=== PATIENT | male | born 1975 | race Caucasian/White ===

== ENCOUNTER 2023-07-09 12:11 | Emergency (ER) | payer SELFPAY ==
[2023-07-09 12:46] VITALS: BMI 22.8
[2023-07-09 12:50] VITALS: BP 125/86; PULSE 98; RESP 20; TEMP 37.1; O2SAT 99; BMI 23.6
[2023-07-09 13:09] VITALS: BP 125/86; PULSE 98; RESP 20; TEMP 37.1; O2SAT 99
--- NOTE | 2023-07-09 13:34 | EXP.UTC ---
Discharge Plan Disposition Patient Disposition: Home, Self-Care Condition: Good Prescriptions Prescriptions: New amoxicillin-pot clavulanate 875-125 mg Tablet 1 tab PO Q12H Qty: 20 0RF Referrals Follow up/Referrals: Provider,Referral, MD [Primary Care Provider] - See instructions Activity Restrictions/Add. Instructions Additional Instructions/Restrictions: Clean area well with antibacterial soap and water Watch for worsening signs of infection and follow up immediately if seen Return if needed Straight to ER if you see any streaks having fever, chills or swelling and redness moving up arm Clinical Impressions Clinical Impression: Puncture wound Instructions Patient Instructions: DI for Puncture Wound Discharge ED Provider: Aletha Childers [facility] [place] HPI General Stated complaint: AO8@work, pain in Rt hand Mode of Arrival: Ambulatory Source of Information: Patient Limitations: No Limitations Time Seen by Provider: 07/09/23 13:34 Description of Symptoms (Recalled from Triage Doc. by RN): PATIENT C/O PAIN AND SWELLING TO RIGHT HAND AFTER HITTING IT ON A NAIL 3 DAYS AGO HEENT Symptoms (Recalled from RN notes): No Resp Symptoms (Recalled from RN notes): No Skin Symptoms (Recalled from RN notes): No MS Symptoms (Recalled from RN notes): Yes Functional Status (Recalled from RN notes): WNL History of Present Illness Provider Complaint: Patient states that he was working under a house a few days ago and he hit his hand on a nail that was sticking down from a floor joist States that he continued working thinking it would be ok but today it looked swollen like it may be getting infected so he came in to get a tetanus shot and antibiotics Related Data Previous Rx's Medication Instructions Recorded amoxicillin 875 mg-potassium 1 tab PO Q12H #20 tabs 07/09/23 clavulanate 125 mg tablet Allergies Allergy/AdvReac Type Severity Reaction Status Date / Time No Known Allergies Allergy Verified 07/09/23 12:45 Worker's Comp Is this a Worker's Comp case?: No [facility] Disclaimer: The information contained in this section may have been updated after the patient was seen, as this information can be updated by other users. Medical History (Updated 07/09/23 @ 13:41 by Aletha Childers APRN) Anxiety Hypertension Social History Smoking Status: Unknown if ever smoked alcohol intake: never current occupational status: employed Travel in the last 8 weeks: None ROS Obtained: Yes All systems reviewed & no additional complaints except as documented and Yes Systems reviewed as appropriate & no additional complaints except as documented Constitutional Constitutional: Reports system reviewed and no additional complaints, except as documented and Reports as per HPI ENT Ears, Nose, Mouth, and Throat: Reports system reviewed and no additional complaints, except as documented and Reports as per HPI Cardiovascular Cardiovascular: Reports system reviewed and no additional complaints, except as documented and Reports as per HPI Respiratory Respiratory: Reports system reviewed and no additional complaints, except as documented and Reports as per HPI Gastrointestinal Gastrointestingal: Reports system reviewed and no additional complaints, except as documented and as per HPI Integumentary/Breasts Skin/Breast: Reports system reviewed and no additional complaints, except as documented and Reports as per HPI Comments: Puncture wound on right hand from dirty nail Physical Exam General General appearance: alert and in no apparent distress Respiratory Respiratory exam: Present normal lung sounds bilaterally; Absent respiratory distress or wheezes Cardiovascular Cardiovascular exam: Present regular rate, normal rhythm and normal heart sounds Expanded Upper Extremity Exam Right: Hand exam: Present tenderness and swelling (mild with redness around small puncture wound) Neurological Exam Neurological exam: Present michael
== END 2023-07-09 13:40 | disposition home or self-care (01) ==
PROVIDERS: Emergency Provider Nurse Practitioner
DX: S61.431A Puncture wound without foreign body of right hand, initial encounter (principal); Z23 Encounter for immunization; I10 Essential (primary) hypertension; F41.9 Anxiety disorder, unspecified; W45.0XXA Nail entering through skin, initial encounter
CPT/HCPCS: 90715; 99204; 99212; G0463

== ENCOUNTER 2023-10-15 21:27 | Emergency (ER) | payer SELFPAY ==
--- NOTE | 2023-10-15 21:40 | PC.NURSE ---
Patient not in room upon entering to triage. [employer] had pointed patient to restroom upon rooming patient.
[2023-10-15 21:47] VITALS: BP 139/105; PULSE 95; RESP 18; TEMP 36.7; O2SAT 99; BMI 24.7
--- NOTE | 2023-10-15 21:55 | HMH.EDGENADL ---
Discharge Plan Disposition Patient Disposition: Home, Self-Care Prescriptions Prescriptions: New sulfamethoxazole-trimethoprim [Bactrim DS] 800-160 mg tablet 1 tab PO DAILY 7 Days Qty: 7 0RF ondansetron 4 mg tablet,disintegrating 4 mg PO Q8H PRN (Reason: nausea and vomiting) 4 Days Qty: 12 0RF No Action amoxicillin-pot clavulanate 875-125 mg Tablet 1 tab PO Q12H Qty: 20 0RF Referrals Follow up/Referrals: Provider,Referral, MD [Primary Care Provider] - See instructions Activity Restrictions/Add. Instructions Additional Instructions/Restrictions: At this time it was felt you are safe to be discharged home. If new or worsening symptoms please do not hesitate to return the emergency department. If symptoms persist please follow-up with your family doctor as you are able. Please take your medications as prescribed. Clinical Impressions Clinical Impression: Infected open wound, Vomiting Instructions Patient Instructions: DI for Skin Abscess Discharge ED Provider: Lisandro Barnes General Adult HPI General Chief complaint: Skin/Abscess/Foreign Body Stated complaint: sores all over, diarrhea Time Seen by Provider: 10/15/23 21:34 Mode of Arrival: Ambulatory Source of Information: Patient Limitations: No Limitations Description of Symptoms (Recalled from ER Triage Doc. 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 Patient also reports that he had nausea an vomiting yesterday last episode of emesis @ 0200 with frequent diarrhea. Patient reports that he had a [employer] sandwich just [employer] although his appetite is decreased, also drinking a large soda at triage. History of Present Illness HPI narrative: Patient is a 48-year-old male with past medical history of previous MRSA source who presents emergency department for evaluation of a sore. He also has had nausea and vomiting over the last 48 hours, there is associated nonbloody diarrhea. Patient had transient abdominal pain yesterday however no abdominal pain currently, has tolerated p.o. this afternoon with persistent nausea. No other acute complaints at this time. Related Data Previous Rx's Medication Instructions Recorded amoxicillin 875 mg-potassium 1 tab PO Q12H #20 tabs 07/09/23 clavulanate 125 mg tablet ondansetron 4 mg disintegrating 4 mg PO Q8H PRN nausea and 10/15/23 tablet vomiting 4 days #12 tabs sulfamethoxazole 800 1 tab PO DAILY 7 days #7 tabs 10/15/23 mg-trimethoprim 160 mg tablet (Bactrim DS) Allergies Allergy/AdvReac Type Severity Reaction Status Date / Time No Known Allergies Allergy Verified 07/09/23 12:45 PFSH PFS Disclaimer: The information contained in this section may have been updated after the patient was seen, as this information can be updated by other users. Medical History (Updated 10/15/23 @ 21:55 by Lisandro Barnes MD) Anxiety Hypertension Social History (Updated 07/09/23 @ 13:41 by Aletha Childers APRN) Smoking Status: Current every day smoker alcohol intake: never current occupational status: employed Travel in the last 8 weeks: None ROS Obtained: Yes Systems reviewed as appropriate & no additional complaints except as documented Physical Exam General General appearance: alert and in no apparent distress Head Head exam: atraumatic, normocephalic and other (Open sores over the vertex that are excoriated, hemostatic. Subcentimeter open sore over his right medial eyebrow, no involvement of the lid or sclera.) Eye Eye exam: Present PERRL and EOMI ENT ENT exam: Present mucous membranes moist Neck Neck exam: Present normal inspection Chest Chest inspection: Present normal inspection and symmetric chest wall rise Respiratory Respiratory exam: Present normal lung sounds bilaterally; Absent respiratory distress Cardiovascular Cardiovascular exam: Present regular
[2023-10-15 22:20] VITALS: BP 140/93; PULSE 96; RESP 16; TEMP 36.8; O2SAT 98
== END 2023-10-15 22:21 | disposition home or self-care (01) ==
PROVIDERS: Emergency Provider Emergency Medicine
DX: S01.00XA Unspecified open wound of scalp, initial encounter (principal); L08.9 Local infection of the skin and subcutaneous tissue, unspecified; R11.2 Nausea with vomiting, unspecified; R19.7 Diarrhea, unspecified; F17.210 Nicotine dependence, cigarettes, uncomplicated; I10 Essential (primary) hypertension; X58.XXXA Exposure to other specified factors, initial encounter
CPT/HCPCS: 99283

== ENCOUNTER 2025-01-25 17:03 | Emergency (ER) | payer MEDICAID, SELFPAY ==
[2025-01-25 17:15] VITALS: BP 134/72; PULSE 90; RESP 18; TEMP 36.7; O2SAT 98; BMI 27.3
[2025-01-25 17:21] LABS: Coronavirus 19, PCR Not Detected (NotDetected); Influenza A, PCR Not Detected (NotDetected); Influenza B, PCR Not Detected (NotDetected)
[2025-01-25 18:14] VITALS: BP 114/73; PULSE 85; O2SAT 98
--- NOTE | 2025-01-25 18:14 | XR_ITS ---
PROCEDURE INFORMATION: Exam: XR Chest Exam date and time: 01/25/2025 6:11 PM Age: 50 years old Clinical indication: Cough TECHNIQUE: Imaging protocol: Radiologic exam of the chest. Views: 2 views. COMPARISON: No relevant prior studies available. FINDINGS: Lungs: Unremarkable. No consolidation. Pleural spaces: Unremarkable. No pleural effusion. No pneumothorax. Heart/Mediastinum: Unremarkable. No cardiomegaly. Bones/joints: Unremarkable. IMPRESSION: No acute findings.
--- NOTE | 2025-01-25 18:14 | HMH.EDGENADL ---
Discharge Plan Disposition Patient Disposition: Home, Self-Care Prescriptions Prescriptions: New doxycycline hyclate 100 mg capsule 100 mg PO BID 7 Days Qty: 14 0RF joouxkdpdowijxy-pqquhbqpo-EX [Bromfed DM] 2-30-10 mg/5 mL syrup 5 ml PO Q6H PRN (Reason: cold symptoms) Qty: 118 0RF No Action amoxicillin-pot clavulanate 875-125 mg Tablet 1 tab PO Q12H Qty: 20 0RF sulfamethoxazole-trimethoprim [Bactrim DS] 800-160 mg tablet 1 tab PO DAILY 7 Days Qty: 7 0RF ondansetron 4 mg tablet,disintegrating 4 mg PO Q8H PRN (Reason: nausea and vomiting) 4 Days Qty: 12 0RF Referrals Follow up/Referrals: Gala Abel APRN [Primary Care Provider] - See instructions Activity Restrictions/Add. Instructions Additional Instructions/Restrictions: At this time it was felt you are safe to be discharged home. If new or worsening symptoms please do not hesitate to return the emergency department. Please take antibiotics as prescribed and follow-up with your family doctor early next week if things are not getting better. Clinical Impressions Clinical Impression: Acute interstitial pneumonia Print Language Print Language: Chinese Discharge ED Provider: Lisandro Barnes General Adult HPI General Chief complaint: Upper Respiratory Infection Stated complaint: sore throat, MAC, SOA Time Seen by Provider: 01/25/25 17:55 Mode of Arrival: Ambulatory Source of Information: Patient Description of Symptoms (Recalled from ER Triage Doc. by RN): Pt presents for evaluation of productive cough, bodyaches, chills since . History of Present Illness HPI narrative: Patient is a 50-year-old male with no pertinent past medical history presents emergency department for evaluation multiple complaints. Since patient has had diffuse bodyaches, productive cough, chills, sore throat, rhinorrhea. No chest pain reported no abdominal pain reported. Due to persistent symptoms he presents here for continued evaluation. No other acute complaints at this time Please note that above description of symptoms, in this electronic medical record under categorization of recalled from ER triage doctor by RN are reflective of an initial nursing assessment, however, is not reflective of my full history and physical exam that was personally taken and clarified. Consequentially, this preceding description of symptoms, which may include the patient's categorized chief complaint in the EMR, do not reflect my personal clinical impression, and the ultimate description of history of present illness and patient stated complaints should be deferred to this section of the note. Unless stated otherwise or congruent with this section of the note, additional signs, symptoms, or incongruence should be interpreted as inaccurate with my clinical impression. Related Data Previous Rx's ?Medication ?Instructions ?Recorded amoxicillin 875 mg-potassium 1 tab PO Q12H #20 tabs 07/09/23 clavulanate 125 mg tablet ondansetron 4 mg disintegrating 4 mg PO Q8H PRN nausea and 10/15/23 tablet vomiting 4 days #12 tabs sulfamethoxazole 800 1 tab PO DAILY 7 days #7 tabs 10/15/23 mg-trimethoprim 160 mg tablet (Bactrim DS) mwfzzwawujmldyk-kwwieaokhdmxpbu-IH 5 ml PO Q6H PRN cold symptoms #118 01/25/25 2 mg-30 mg-10 mg/5 mL oral syrup mL (Bromfed DM) doxycycline hyclate 100 mg capsule 100 mg PO BID pneumonia 7 days #14 01/25/25 caps Allergies Allergy/AdvReac Type Severity Reaction Status Date / Time No Known Allergies Allergy Verified 01/25/25 18:31 [facility] Disclaimer: The information contained in this section may have been updated after the patient was seen, as this information can be updated by other users. Medical History (Updated 01/25/25 @ 19:22 by Lisandro Barnes MD) Anxiety Hypertension Social History (Updated 07/09/23 @ 13:41 by Aletha Childers APRN) Smoking Status: Current every day smoker alcohol intake: never current occupational status: employed Travel in the last 8 weeks: None Have you lived/traveled outside US in past 30 days?: No Contact w/someone who lives/traveled outside US past 30 days?: No Exposure to someone with infectious disease in past 14 days?: No Do you have a fever (greater than 100.4 F or 38 C)?: No Have you tested positive for COVID-19: No Exposed to someone with COVID-19 in past 14 days?: No Do you have a sore throat?: Yes Do you have a cough?: Yes Do you have any weakness?: Yes Do you have any diarrhea?: No Are you experiencing any unusual bleeding?: No Do you have any muscle aches/pain?: No Do you have any abdominal pain?: No Are you experiencing loss of taste or smell?: No ROS Obtained: Yes Systems reviewed as appropriate & no additional complaints except as documented Physical Exam General General appearance: alert and in no apparent distress Head Head exam: atraumatic and normocephalic Eye Eye exam: Present PERRL and EOMI ENT ENT exam: Present mucous membranes moist; Absent normal oropharynx (Erythematous posterior oropharynx without overt exudate uvula midline, no swollen tonsils) Neck Neck exam: Present normal inspection Chest Chest inspection: Present normal inspection and symmetric chest wall rise Respiratory Respiratory exam: Present normal lung sounds bilaterally; Absent respiratory distress, wheezes or stridor Cardiovascular Cardiovascular exam: Present regular rate and normal rhythm Extremities Exam Extremities exam: Present normal inspection Neurological Exam Neurological exam: Present alert Psychiatric Psychiatric exam: Present normal affect Skin Skin exam: Present warm and dry Medical Decision Making Medical Records Screening: Per USPSTF and CDC recommendations, given the prevalence of disease in our region, it is our hospital?s policy to screen for HIV and viral Hepatitis for all patients aged 18 and over and those with ongoing risk factors. Jose Inquiry Pt receiving controlled substance: No Vital Signs: 01/25/25 17:15 01/25/25 18:14 01/25/25 18:49 Temperature 98.0 F Temperature Source Oral Pulse Rate 85 76 Pulse Rate [Right] 90 Respiratory Rate 18 Blood Pressure 114/73 140/90 Blood Pressure [Right Arm] 134/72 Blood Pressure Mean [Right Arm] 92 Blood Pressure Source [Right Arm] Automatic Cuff Blood Pressure Position [Right Arm] Sitting 02 Sat by Pulse Oximetry 98 98 95 Oxygen Delivery Method Room Air Room Air Room Air Lab Data Lab Results 01/25/25 17:17: SARS-CoV-2 (PCR) Not detected, Influenza A Untype (PCR) Not detected, Influenza Type B (PCR) Not detected, Group A Strep Rapid Negative Orders (Tests/Meds): ED MEDICATIONS Discontinued Medications Generic Name Dose Route Start Last Admin Trade Name Gabrielq PRN Reason Stop Dose Admin Acetaminophen 1,000 mg 01/25/25 18:14 01/25/25 18:30 Acetaminophen 500mg Tab PO 01/25/25 18:15 1,000 mg ONCE ONE Administration Ibuprofen 600 mg 01/25/25 18:14 01/25/25 18:30 Ibuprofen 600 Mg Tablet PO 01/25/25 18:15 600 mg ONCE ONE Administration ORDERS Category Date Time Status CXR 2 view (NOT portable) [XR chest 2V] Stat Exams 01/25/25 18:14 Taken HIV Combo Stat Lab 01/25/25 17:48 Ordered Hepatitis C Ab Qual. W/ RFX Stat Lab 01/25/25 17:48 Ordered Rapid PCR Covid and Flu A/B Stat Lab 01/25/25 17:17 Completed Strep Scrn Group A (Rapid) Stat Lab 01/25/25 17:17 Completed Strep Screen Confirmation Stat Micro 01/25/25 17:17 Received Medical Decision Narrative: In summary patient is a 50-year-old male with past medical history described above who presents emergency department for evaluation of cough, rhinorrhea, sore throat, myalgias. Patient is hemodynamically stable nontoxic-appearing upon arrival, afebrile. Patient's history strongly consistent with viral syndrome given prevalence of influenza in our community swab will be obtained. Differential also includes pneumonia, strep pharyngitis, among others. Limited workup will be conducted with COVID and flu swab, strep swab, two-view chest x-ray. Initial inventions include Tylenol and ibuprofen. Swabs reviewed by me and are negative. Chest x-ray informally interpreted by me, and appears that patient is developing interstitial pneumonia, given the prevalence of mycoplasma in our community will treat empirically with doxycycline. Upon repeat evaluation patient was saturating well on room air no tachycardia given this patient is appropriate for outpatient management at this time will be treated empirically with doxycycline and was given Bromfed and given multiple return precautions verbalized understanding. Critical Care Critical Care Time Critical Care Time: No
[2025-01-25 18:26] LABS: Strep Scrn Group A (Rapid) Negative (Negative)
[2025-01-25] MEDS: IBUPROFEN 600 MG TABLET PO (18:30)
[2025-01-25] MEDS: ACETAMINOPHEN 500MG TAB 1000 MG PO (18:30)
--- NOTE | 2025-01-25 18:30 | PC.NURSE ---
I rounded on the pt. no new complaints at this time. no needs voiced. call stoddard in reach.
[2025-01-25 18:49] VITALS: BP 140/90; PULSE 76; O2SAT 95
--- NOTE | 2025-01-25 19:12 | PC.NURSE ---
Report received from February RN Pt sleeping when undisturbed Skin pink warm and dry Resp full and easy
--- NOTE | 2025-01-25 19:13 | PC.NURSE ---
Pt awaiting xray results
[2025-01-25 19:26] VITALS: BP 125/87; PULSE 79; RESP 20; TEMP 36.9; O2SAT 93
[2025-01-25] MEDS: DOXYCYCLINE HYCL 100 MG TABLET PO (19:32)
[2025-01-25 19:37] VITALS: BP 125/87; PULSE 79; RESP 24; TEMP 36.9; O2SAT 93
== END 2025-01-25 19:37 | disposition home or self-care (01) ==
PROVIDERS: Emergency Provider Emergency Medicine; PCP Nurse Practitioner Family
DX: J84.9 Interstitial pulmonary disease, unspecified (principal); R06.02 Shortness of breath; R05.9 Cough, unspecified; R51.9 Headache, unspecified; M79.10 Myalgia, unspecified site; R68.83 Chills (without fever); J02.9 Acute pharyngitis, unspecified; Z72.0 Tobacco use
CPT/HCPCS: 71046; 87430; 87636; 99283

== ENCOUNTER 2025-11-11 13:33 | Emergency (ER) | payer MEDICAID, SELFPAY ==
[2025-11-11 14:05] VITALS: BP 132/90; PULSE 87; RESP 18; TEMP 36.9; O2SAT 98; BMI 28.1
[2025-11-11 14:08] VITALS: BP 132/90; PULSE 87; RESP 18; O2SAT 98
--- OUTSIDE RECORDS SUMMARY | 2025-11-11 14:12 | XMS_ITS | Encounter Summary ---
Author Organization [employer] ([place], [place], [place], [place], [place]) Address [address] [place] [address] Care Team Providers Care Edging Catcher Name Role Phone Unavailable Primary Care Provider Unavailabl e Encounter Details Date Type Department Care Team (Late st Contact Info) Description 06/01/2019 Transcribed Document [facility] [place] [facility] [place] [address] ProviderArnoldo MD [address] [place] [address] Social History Tobacco Use Types Packs/Day Years Used Date Smoking Tobacco: Never Assessed Sex and Gender Information Value Date Recorded Sex Assigned at Male 05/14/2022 11:03 AM CDT Legal Sex Male 11:03 AM CDT Gender Identity Male 05/14/2022 11:03 AM CDT Sexual Orientation Not on file documented as of this encounter Miscellaneous Notes * Cerner Conversion Note - Arnoldo ProviderMD - 06/01/2019 8:41 PM CDT ED Discharge Entered On: 06/01/2019 20:41 EDT Performed On: 06/01/2019 20:41 EDT by Carlos Gill Rn Discharge Process Patient Disposition : Discharge Personal Belongings With Patient : Yes Teaching Evaluation : Verbalizes understanding IV Discontinued : Yes Carlos Gill Rn - 06/01/2019 20:41 EDT documented in this encounter Plan of Treatment Not on file documented as of this encounter Visit Diagnoses Not on filedocumented in this encounter
--- OUTSIDE RECORDS SUMMARY | 2025-11-11 14:12 | XMS_ITS | Encounter Summary ---
Author Organization [employer] ([place], [place], [place], [place], [place]) Address [address] [place] [address] Care Team Providers Care Business Liaison Manager Name Role Phone Unavailable Primary Care Provider Unavailabl e Encounter Details Date Type Department Care Team (Late st Contact Info) Description 06/01/2019 Transcribed Document [facility] [place] [address] ProviderArnoldo MD [address] [place] [id number] Social History Tobacco Use Types Packs/Day Years Used Date Smoking Tobacco: Never Assessed Sex and Gender Information Value Date Recorded Sex Assigned at Male 05/14/2022 11:03 AM CDT Legal Sex Male 11:03 AM CDT Gender Identity Male 05/14/2022 11:03 AM CDT Sexual Orientation Not on file documented as of this encounter Miscellaneous Notes * Cerner Conversion Note - Arnoldo ProviderMD - 06/01/2019 7:13 PM CDT ED Assessment Entered On: 06/01/2019 20:38 EDT Performed On: 06/01/2019 20:37 EDT by Zulma Diego Rn ED Quick Look Assessment Level of Consciousness : Alert, Awake Affect/Behavior : Appropriate, Calm Orientation : Oriented x 4 Zulma Diego Rn - 06/01/2019 20:37 EDT ED General-Functional Assess Information Obtained From : Patient Communication Barrier : None Primary Language : Lithuanian Any Spiritual/Cultural Needs or Requests : No Currently in Unsafe Situation : No Zulma Diego Rn - 06/01/2019 20:37 EDT Social Habits Desires Tobacco Cessation Medication : No Reason for No Tobacco Cessation Medication : ED/procedural patient only Zulma Diego Rn - 06/01/2019 20:39 EDT Smoking Status : 10 or more cigarettes (1/2 pack or more)/day in last 30 days Smokeless Tobacco Status : Never Desires Tobacco Cessation Calc : 1 Zulma Diego Rn - 06/01/2019 20:37 EDT Social History (As Of: 06/01/2019 20:39:07 EDT) Tobacco: Smoking Status Current every day smoker. (Last Updated: 08/06/2015 15:27:23 EDT by Clotilde Nava, RN) Alcohol: Use in Last 12 Months: No. (Last Updated: 08/06/2015 15:27:29 EDT by Clotilde Nava, SENDY) EENT Assessment Eye Assessment, Left : Irritation, Itching, Pain, Redness Zulma Diego Rn - 06/01/2019 20:37 EDT documented in this encounter Plan of Treatment Not on file documented as of this encounter Visit Diagnoses Not on filedocumented in this encounter
--- OUTSIDE RECORDS SUMMARY | 2025-11-11 14:12 | XMS_ITS | Encounter Summary ---
Author Organization [email or web address] ([place], [place], [place], [place], [place]) Address [address] [place] [address] Care Team Providers Care Deputy Court Name Role Phone Unavailable Primary Care Provider Unavailabl e Encounter Details Date Type Department Care Team (Late st Contact Info) Description 06/01/2019 Transcribed Document [facility] [place] Family Medicine [facility] [place] [address] ProviderArnoldo MD [address], [place] [id number] Social History Tobacco Use Types Packs/Day Years Used Date Smoking Tobacco: Never Assessed Sex and Gender Information Value Date Recorded Sex Assigned at Male 05/14/2022 11:03 AM CDT Legal Sex Male 11:03 AM CDT Gender Identity Male 05/14/2022 11:03 AM CDT Sexual Orientation Not on file documented as of this encounter Miscellaneous Notes * Cerner Conversion Note - Historical ProviderMD - 06/01/2019 8:21 PM CDT Patient: KLAUS HENRY Age: 44 years Sex: Male : 1975 Associated Diagnoses: Conjunctivitis Author: SLVAA WOOD, Basic Information Additional information: Chief Complaint from Nursing Triage Note : Chief Complaint 06/01/2019 19:50 EDT Chief Complaint Pt. co Left eye pain with rednes and swelling that began today. pt reports rash to body that began x 2 weeks ago. pt is calm Alert skinpwd. . History of Present Illness The patient presents with eye pain, eye drainage, red eye(s) and I got these mites all over me, some got in my eye and its burning . Pt noted to have some diffuse excoriations on his body. He has a reddened left eye and is fluttering about using a great deal of profanity.. The onset was 1 days ago. The course/duration of symptoms is constant. Type of injury:. The location where the incident occurred was at home. Location: Left eye(s). The character of symptoms is redness, burning and drainage. The degree of symptoms is moderate. The exacerbating factor is light. The relieving factor is closing eyes. Prior episodes: none. Risk factors consist of none. Therapy today: none. Associated symptoms: none. Additional history: Corrective vision. Review of Systems Constitutional symptoms: No fever, Skin symptoms: Negative except as documented in HPI. Eye symptoms: Discharge. Musculoskeletal symptoms: Negative except as documented in HPI. Hematologic/Lymphatic symptoms: Negative except as documented in HPI. Health Status Allergies: Allergic Reactions (Selected) No Known Medication Allergies. Medications: (Selected) Prescriptions Prescribed Zofran ODT 4 mg oral tablet, disintegratin Tab, Oral, TID, for 3 Day(s), PRN: Nausea, 10 Tab, 0 Refill(s). Past Medical/ Family/ Social History Medical history Psychiatric: anxiety. Surgical history: None ([id number]). Right hand surgery. Comments: 08/14/2018 03:12 - Klaudia Quiroz Rn Pt. stated, I had a piece of mental taken out. year unknown. Family history: No family history items have been selected or recorded.. Social history: Social & Psychosocial Habits Alcohol 08/06/2015 Alcohol Use in Last Twelve Months No Tobacco 08/06/2015 Smoking Status Current every day smoker . Physical Examination Vital Signs Vital Signs/Vital Measures 06/01/2019 19:50 EDT Systolic Blood Pressure 157 mmHg HI Diastolic Blood Pressure 98 mmHg HI Temperature Source Tympanic Temperature Mode Fahrenheit Temperature, Fahrenheit 97.4 Deg F Clinical Temperature, C 36.3 Deg C Peripheral Pulse Rate 99 bpm Respiratory Rate 18 Breaths/Min Oxygen Saturation 99 % Oxygen Therapy Mode Room air . Per nurse's notes. Measurements 06/01/2019 19:50 EDT Height Source Measured Height Entry Format [place] Height/Length, SOMALI (ft) 5 ft Height/Length SOMALI 8 Inch CLINICALHEIGHT 172.72 cm [place] Body Weight 67.45 kg Weight Source, ED Standing scale Weight Entry Format [place] Weight [place] lb 182 lb CLINICALWEIGHT 82.73 kg Body Surface Area (BSA) 1.97 m2 Body Mass Index 27.7 kg/m2 HI . Oxygen Saturation 06/01/2019 19:50 EDT Oxygen Saturation 99 % . General: Alert. Skin: Warm. Head: Normocephalic. Neck: Supple. Eye: Intact accommodation, Anterior chamber, Pupil: Equal, Conjunctiva: Both eyes, with conjunctivitis, erythematous, Cornea: Left, abrasions. Cardiovascular: Normal peripheral perfusion. Respiratory: Respirations are non-labored. Back: Nontender. Musculoskeletal: Normal ROM. Chest wall Gastrointestinal: Non distended. Neurological: Alert and oriented to person, place, time, and situation, No focal neurological deficit observed. Lymphatics Psychiatric: Cooperative. Medical Decision Making Differential Diagnosis: Conjunctivitis, eye pain, visual impairment. Procedure He may have scabies, so I will offer medications for this. 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 Impression and Plan Diagnosis Conjunctivitis - Discharge, Emergency medicine, Medical Plan Condition: Stable. Disposition: Medically cleared. Prescriptions Patient was given the following educational materials: Pt. education. Limitations: Limited activity. Follow up with: Launch Follow-up. Counseled: Patient. documented in this encounter Plan of Treatment Not on file documented as of this encounter Visit Diagnoses Not on filedocumented in this encounter
--- OUTSIDE RECORDS SUMMARY | 2025-11-11 14:12 | XMS_ITS | Encounter Summary ---
Author Organization [employer] ([place], [place], [place], [place], [place]) Address [address] [place] [address] Care Team Providers Care Saddle Tree Stitcher Name Role Phone Unavailable Primary Care Provider Unavailabl e Encounter Details Date Type Department Care Team (Late st Contact Info) Description 06/01/2019 Transcribed Document [facility] [place] [facility] [place] [address] ProviderArnoldo MD [address] [place] [id number] Social History Tobacco Use Types Packs/Day Years [...] ProviderMD - 06/01/2019 7:13 PM CDT ED Triage Entered On: 06/01/2019 19:53 EDT Performed On: 06/01/2019 19:50 EDT by BIJAL JAIME REGISTERED ART THERAPIST Triage Across the Room Triage Date/Time : 06/01/2019 19:50 EDT Chief Complaint : Pt. co Left eye pain with rednes and swelling that began today. pt reports rash to body that began x 2 weeks ago. pt is calm Alert skinpwd. BIJAL JAIME RN - 06/01/2019 19:50 EDT DCP GENERIC CODE Tracking Acuity : 3 - Urgent Tracking Group : [facility] BIJAL JAIME RN - 06/01/2019 19:50 EDT Mode of Arrival : Ambulatory Transported to ED by : Private vehicle To Room Via : Ambulate Accompanied By : Significant other ED Vital Signs : Document Height & Weight : Document ED Allergies : Document ED Reason for Visit : Document Tetanus Immunization : Greater than 5 years BIJAL JAIME RN - 06/01/2019 19:50 EDT Infectious Disease History Infectious Disease History : Chicken pox/Shingles, Hepatitis A, MRSA, Other: pt unasure what heptitis he has Fever/Chills Last 48 Hours : No Travel To Regions with Travel Advisories : No Travel Outside [place] Within Last 30 Days : No Contact With Traveler to Advisory Region : No Tuberculosis Symptoms : None BIJAL JAIME RN - 06/01/2019 19:50 EDT Vital Signs ED Temperature Source : Tympanic Temperature Mode : Fahrenheit Temperature, Fahrenheit : 97.4 Deg F ED Pain : Yes Clinical Temperature, C : 36.3 Deg C Oxygen Therapy Mode : Room air Peripheral Pulse Rate : 99 bpm Respiratory Rate : 18 Breaths/Min Systolic Blood Pressure : 157 mmHg (HI) Diastolic Blood Pressure : 98 mmHg (HI) Oxygen Saturation : 99 % BIJAL JAIME RN - 06/01/2019 19:50 EDT Allergy (As Of: 06/01/2019 19:53:33 EDT) Allergies (Active) No Known Medication Allergies Estimated Onset Date: Unspecified ; Created By: Clotilde Hanna RN; Reaction Status: Active ; Category: Drug ; Substance: No Known Medication Allergies ; Type: Allergy ; Updated By: Clotilde Hanna RN; Reviewed Date: 06/01/2019 19:52 EDT Diagnosis Control ED (As Of: 06/01/2019 19:53:33 EDT) Problems(Active) Protein calorie malnutrition (SNOMED CT :920189460 ) Name of Problem: Protein calorie malnutrition ; Recorder: Marilee Rankin RD, LD; Confirmation: Confirmed ; Classification: Patient Stated ; Code: [id number] ; Contributor System: Gigalocal ; Last Updated: 08/14/2018 15:00 EDT ; Life Cycle Date: 08/14/2018 ; Life Cycle Status: Active ; Vocabulary: SNOMED CT ; Comments: 08/14/2018 15:00 - Marilee Rankin RD, LD Acute severe protein calorie malnutrition related to altered GI function as evidenced by wt loss of 10# x 1-2 wks (6.3%), po intake <50% >1 wk, fat wasting to orbitals Diagnoses(Active) Eye pain Date: 06/01/2019 ; Diagnosis Type: Reason For Visit ; Confirmation: Complaint of ; Clinical Dx: Eye pain ; Classification: Medical ; Clinical Service: Emergency medicine ; Code: PNED ; Probability: 0 ; Diagnosis Code: [id number] Rash Date: 06/01/2019 ; Diagnosis Type: Reason For Visit ; Confirmation: Complaint of ; Clinical Dx: Rash ; Classification: Medical ; Clinical Service: Emergency medicine ; Code: PNED ; Probability: 0 ; Diagnosis Code: [id number] ED Height and Weight Height Source : Measured Height Entry Format : [place] Height, Feet : 5 ft(Converted to: 152 cm, 60 Inch) Height, Inches : 8 Inch(Converted to: 0 ft 8 Inch, 20.32 cm) Clinical Height : 172.72 cm Weight Source, ED : Standing scale Weight Entry Format : [place] Weight, Pounds : 182 lb Clinical Dosing Weight : 82.73 kg Body Surface Area (BSA) : 1.97 m2 Body Mass Index : 27.7 kg/m2 (HI) [place] Body Weight (IBW) : 67.45 kg BIJAL JAIME RN - 06/01/2019 19:50 EDT Pain Assessment Pain Assessment : Initial assessment Pain Scale Used : 0-10 Scale BIJAL JAIME RN - 06/01/2019 19:50 EDT Pain Scale Intensity : 8 BIJAL JAIME RN - 06/01/2019 19:50 EDT Image 4 - Images currently included in the form version of this document have not been included in the text rendition version of the form. Electronically signed by Ada Sheth Conversion Instructional Technology Coordinator Cerner at 03/03/2023 11:29 AM CDT documented in this encounter Plan of Treatment Not on file documented as of this encounter Visit Diagnoses Not on filedocumented in this encounter
--- OUTSIDE RECORDS SUMMARY | 2025-11-11 14:12 | XMS_ITS | Encounter Summary ---
Author Organization [employer] ([place], [place], [place], [place], [place]) Address [address] [place] [address] Care Team Providers Care Jigger Operator Name Role Phone Unavailable Primary Care Provider Unavailabl e Encounter Details Date Type Department Care Team (Late st Contact Info) Description 08/09/2019 Transcribed Document [facility] [place] Family Medicine [facility] [place] [address] ProviderArnoldo MD [facility] [place] [address] Social History Tobacco Use Types Packs/Day Years Used Date Smoking Tobacco: Never Assessed Sex and Gender Information Value Date Recorded Sex Assigned at Male 05/14/2022 11:03 AM CDT Legal Sex Male 11:03 AM CDT Gender Identity Male 05/14/2022 11:03 AM CDT Sexual Orientation Not on file documented as of this encounter Miscellaneous Notes * Cerner Conversion Note - Arnoldo ProviderMD - 08/09/2019 3:34 PM CDT Patient: KLAUS HENRY Age: 44 years Sex: Male : 1975 Associated Diagnoses: Scabies; Bilateral conjunctivitis Author: NEETA DUONG MD-EMR Basic Information Additional information: Chief Complaint from Nursing Triage Note : Chief Complaint 08/09/2019 14:29 EDT Chief Complaint pt c/o bilateral itching and burning in eyes, watering senstionof something in it. blurred vision, pt cont. wiping eyes. eyes red. pt states I need to find out what these bites are . History of Present Illness 44-year-old white male with complaint of bilateral itching and burning in his eyes, crusting and debris in the mornings, blurry vision, red eyes, and also wants to see what these bites are about. Patient reports the eye symptoms present for about 1 week. It seems like they're getting worse overall. He denies any trauma to the eyes, does not do welding or anything else that may have splashed in his eyes or irritated his eyes in any way. He denies any loss of vision except eyes are just kind of blurry because of the drainage. He also is concerned about some extremely itchy bites that are all over his skin. Says he had something similar couple months ago and was prescribed treatment for scabies. He feels like the treatment didn't really help because he can't remember being without the bites. Patient says that he treated the clothing and everything else in his house but didn't seem to get any better. He denies other complaints at this time. The patient presents with eye drainage and red eye(s). The onset was 1 weeks ago. The course/duration of symptoms is constant and worsening. Type of injury: none. Location: Bilateral eye(s). The character of symptoms is redness, itching, burning and drainage. The degree of symptoms is moderate. There are exacerbating factors including opening eyes and light. The relieving factor is none. Prior episodes: occasional. The patient presents with skin problem and infestation. The onset was 2 weeks ago. Location: Trunk upper extremity lower extremity. The character of symptoms is itching, no pain. Review of Systems Constitutional symptoms: Negative except as documented in HPI. Skin symptoms: Negative except as documented in HPI. Eye symptoms: Negative except as documented in HPI. ENMT symptoms: Negative except as documented in HPI. Respiratory symptoms: Negative except as documented in HPI. Cardiovascular symptoms: Negative except as documented in HPI. Gastrointestinal symptoms: Negative except as documented in HPI. Genitourinary symptoms: Negative except as documented in HPI. Musculoskeletal symptoms: Negative except as documented in HPI. Neurologic symptoms: Negative except as documented in HPI. Psychiatric symptoms: Negative except as documented in HPI. Endocrine symptoms: Negative except as documented in HPI. Health Status Allergies: Allergic Reactions (Selected) No Known Medication Allergies. Medications: (Selected) Inpatient Medications Ordered fluorescein 1 mg ophthalmic test: 1 Application, Eyes Both, 1-Time tetracaine 0.5% ophthalmic solution: 2 Drop, Eyes Both, 1-Time Prescriptions Prescribed Mobic 7.5 mg oral tablet: 1 Tab, Oral, BID, 20 Tab, 0 Refill(s) Mobic 7.5 mg oral tablet: 1 Tab, Oral, BID, for 7 Day(s), 14 Tab, 0 Refill(s) Zofran ODT 4 mg oral tablet, disintegratin Tab, Oral, TID, for 3 Day(s), PRN: Nausea, 10 Tab, 0 Refill(s) permethrin 5% topical cream: 1 Application, Topical, AC Dinner, 120 Gram, 0 Refill(s). Past Medical/ Family/ Social History Medical history Reviewed as documented in chart. Surgical history: None ([id number]). Right hand surgery. Comments: 08/14/2018 3:12 EDT - Klaudia Quiroz Rn Pt. stated, I had a piece of mental taken out. year unknown, Reviewed as documented in chart. Family history: No family history items have been selected or recorded.. Social history: Social & Psychosocial Habits Alcohol 08/06/2015 Alcohol Use in Last Twelve Months No Tobacco 08/06/2015 Smoking Status Current every day smoker , Reviewed as documented in chart. Problem list: Active Problems (1) Protein calorie malnutrition . Physical Examination Vital Signs Vital Signs/Vital Measures 08/09/2019 14:29 EDT Systolic Blood Pressure 172 mmHg HI Diastolic Blood Pressure 90 mmHg Temperature Mode Fahrenheit Temperature, Fahrenheit 98.9 Deg F Clinical Temperature, C 37.2 Deg C Peripheral Pulse Rate 96 bpm Respiratory Rate 20 Breaths/Min Oxygen Saturation 100 % . Measurements 08/09/2019 14:29 EDT Height Source Measured Height Entry Format [place] Height/Length, ANGUILLAN (ft) 5 ft Height/Length ANGUILLAN 8.5 Inch CLINICALHEIGHT 173.99 cm [place] Body Weight 68.59 kg Weight Source, ED Standing scale Weight Entry Format [place] Weight [place] lb 160 lb CLINICALWEIGHT 72.73 kg Body Surface Area (BSA) 1.87 m2 Body Mass Index 24 kg/m2 . Oxygen Saturation 08/09/2019 14:29 EDT Oxygen Saturation 100 % . General: Alert, no acute distress, Uncomfortable male, moving all about the bed and very agitated. Skin: Warm, dry, pink, Multiple small insect bites present all over the skin. They seem to be some concentration the creases and folds of the skin.. Eye: Pupils are equal, round and reactive to light, extraocular movements are intact, Yellow drainage and debris in both eyes. Bilateral irritated conjunctiva and redness. Photophobia. No corneal abrasion., Method of inspection: Bilateral eyes, viewed with fluorescein, eyelid eversion done, Tetracaine applied, Conjunctiva: Both eyes, with conjunctivitis, Cornea: Both eyes, foreign body No foreign body, no abrasions. Cardiovascular: Regular rate and rhythm, Normal peripheral perfusion. Respiratory: Respirations are non-labored. Neurological: Alert and oriented to person, place, time, and situation. Medical Decision Making Documents reviewed: Emergency department nurses' notes. Impression and Plan Diagnosis Scabies - Discharge, Emergency medicine, Medical Bilateral conjunctivitis - Discharge, Emergency medicine, Medical Plan Condition: Improved, Stable. Disposition: Discharged Admit/Transfer/Discharge: Discharge (Order): Start: 08/09/2019 15:39 EDT, Discharge to: Home. Prescriptions: Prescription [facility]: permethrin 5% topical cream (Prescribe): 1 Application, Topical, 1-Time, Repeat in 1 week, 60 Gram, 1 Refill(s) erythromycin 0.5% ophthalmic ointment (Prescribe): 0.5 Inch, Eyes Both, QID, for 10 Day(s), 4 Gram, 0 Refill(s). Patient was given the following educational materials: Bacterial Conjunctivitis, Scabies, Adult, Scabies, Adult, Bacterial Conjunctivitis. Follow up with: Return to Emergency Department Within As needed Return if condition worsens. Conjunctivitis--- also known as pink eye. This is an infection in your eyes. Use the ointment 4 times a day for the next 10 days after cleaning the eyes and all the crust off the eyes with a warm wet washcloth. Clean the eyes well or the ointment will not work. Try not to rub the eyes. Scabies--- this is a small bug that causes severe itching. Usually, it lives in furniture, clothing, or other soft items. Apply the lotion from the top of your head to the soles of your feet, leave on overnight for about 12 hours and wash off in the morning. Just as important as the medication is carefully washing and drying on the hottest setting anything I can be washed and dried. You may also have to seek out a pest control service to help remove them from your home. They may be living in a new piece of furniture in your home.; NO PRIM DR HERNANDEZ Within 2 to 3 days. Counseled: Patient, Family, Regarding diagnosis, Regarding diagnostic results, Regarding treatment plan, Regarding prescription, Patient indicated understanding of instructions. 44-year-old male with findings of bilateral conjunctivitis and scabies infestation. Patient does not wear contact lenses. I talked with him about cleaning the eyes and applying the erythromycin ointment as prescribed. We also talked about scabies infestation, eradication of this in the home, and treatment with permethrin lotion. We discussed ongoing care with indications for ER return. Patient discharged home. documented in this encounter Plan of Treatment Not on file documented as of this encounter Visit Diagnoses Not on filedocumented in this encounter
--- OUTSIDE RECORDS SUMMARY | 2025-11-11 14:12 | XMS_ITS | Encounter Summary ---
Author Organization [employer] ([place], [place], [place], [place], [place]) Address [address] [place] [address] Care Team Providers Care Revenue Settlements Administrator Name Role Phone Unavailable Primary Care Provider Unavailabl e Encounter Details Date Type Department Care Team (Late st Contact Info) Description 08/09/[address] [facility] [place] [facility] [place] [address] ProviderArnoldo MD [address] [place] [address] [phone] Social History Tobacco Use Types Packs/Day Years Used Date Smoking Tobacco: Never Assessed Sex and Gender Information Value Date Recorded Sex Assigned at Male 05/14/2022 11:03 AM CDT Legal Sex Male 11:03 AM CDT Gender Identity Male 05/14/2022 11:03 AM CDT Sexual Orientation Not on file documented as of this encounter Miscellaneous Notes * Cerner Conversion Note - Arnoldo ProviderMD - 08/09/2019 1:18 PM CDT ED Triage Entered On: 08/09/2019 14:33 EDT Performed On: 08/09/2019 14:29 EDT by TYSON HERNDON, SECURITY OPERATIONS SPECIALIST Triage Across the Room Triage Date/Time : 08/09/2019 14:29 EDT Chief Complaint : pt c/o bilateral itching and burning in eyes, watering senstionof something in it. blurred vision, pt cont. wiping eyes. eyes red. pt states I need to find out what these bites are TYSON HERNDON RN - 08/09/2019 14:29 EDT DCP GENERIC CODE Tracking Acuity : 4 - Non - Urgent Tracking Group : [facility] ED [facility] TYSON HERNDON RN - 08/09/2019 14:29 EDT Mode of Arrival : Ambulatory Transported to ED by : Walk in To Room Via : Ambulate Accompanied By : Protective services ED Vital Signs : Document Height & Weight : Document ED Allergies : Document ED Reason for Visit : Document Tetanus Immunization : Greater than 5 years TYSON HERNDON RN - 08/09/2019 14:29 EDT Infectious Disease History Infectious Disease History : Chicken pox/Shingles, Hepatitis A, MRSA, Other: pt unasure what heptitis he has Fever/Chills Last 48 Hours : No Travel To Regions with Travel Advisories : No Travel Outside [place] Within Last 30 Days : No Contact With Traveler to Advisory Region : No Tuberculosis Symptoms : None TYSON HERNDON RN - 08/09/2019 14:29 EDT Vital Signs ED Temperature Mode : Fahrenheit Temperature, Fahrenheit : 98.9 Deg F ED Pain : Yes Clinical Temperature, C : 37.2 Deg C Peripheral Pulse Rate : 96 bpm Respiratory Rate : 20 Breaths/Min Systolic Blood Pressure : 172 mmHg (HI) Diastolic Blood Pressure : 90 mmHg Oxygen Saturation : 100 % TYSON HERNDON RN - 08/09/2019 14:29 EDT Allergy (As Of: 08/09/2019 14:33:25 EDT) Allergies (Active) No Known Medication Allergies Estimated Onset Date: Unspecified ; Created By: Clotilde Hanna RN; Reaction Status: Active ; Category: Drug ; Substance: No Known Medication Allergies ; Type: Allergy ; Updated By: Clotilde Hanna RN; Reviewed Date: 08/09/2019 14:32 EDT Diagnosis Control ED (As Of: 08/09/2019 14:33:25 EDT) Problems(Active) Protein calorie malnutrition (SNOMED CT :979646023 ) Name of Problem: Protein calorie malnutrition ; Recorder: Marilee Rankin RD, LD; Confirmation: Confirmed ; Classification: Patient Stated ; Code: [id number] ; Contributor System: [employer] ; Last Updated: 08/14/2018 15:00 EDT ; Life Cycle Date: 08/14/2018 ; Life Cycle Status: Active ; Vocabulary: SNOMED CT ; Comments: 08/14/2018 15:00 - Marilee Rankin RD, LD Acute severe protein calorie malnutrition related to altered GI function as evidenced by wt loss of 10# x 1-2 wks (6.3%), po intake <50% >1 wk, fat wasting to orbitals Diagnoses(Active) Eye pain Date: 08/09/2019 ; Diagnosis Type: Reason For Visit ; Confirmation: Complaint of ; Clinical Dx: Eye pain ; Classification: Medical ; Clinical Service: Emergency medicine ; Code: PNED ; Probability: 0 ; Diagnosis Code: [id number] Rash Date: 08/09/2019 ; Diagnosis Type: Reason For Visit ; Confirmation: Complaint of ; Clinical Dx: Rash ; Classification: Medical ; Clinical Service: Emergency medicine ; Code: PNED ; Probability: 0 ; Diagnosis Code: [id number] ED Height and Weight Height Source : Measured Height Entry Format : Ransom Height, Feet : 5 ft(Converted to: 152 cm, 60 Inch) Height, Inches : 8.5 Inch(Converted to: 0 ft 9 Inch, 21.59 cm) Clinical Height : 173.99 cm Weight Source, ED : Standing scale Weight Entry Format : Ransom Weight, Pounds : 160 lb Clinical Dosing Weight : 72.73 kg Body Surface Area (BSA) : 1.87 m2 Body Mass Index : 24 kg/m2 Rockwell Body Weight (IBW) : 68.59 kg TYSON HERNDON RN - 08/09/2019 14:29 EDT Pain Assessment Pain Scale Used : 0-10 Scale TYSON HERNDON RN - 08/09/2019 14:29 EDT Pain Scale Intensity : 8 TYSON HERNDON RN - 08/09/2019 14:29 EDT Image 4 - Images currently included in the form version of this document have not been included in the text rendition version of the form. documented in this encounter Plan of Treatment Not on file documented as of this encounter Visit Diagnoses Not on filedocumented in this encounter
--- OUTSIDE RECORDS SUMMARY | 2025-11-11 14:12 | XMS_ITS | Encounter Summary ---
Author Organization [employer] ([place], [place], [place], [place], [place]) Address [address] [place] [address] Care Team Providers Care Lpn Rn Hospice Name Role Phone Unavailable Primary Care Provider Unavailabl e Encounter Details Date Type Department Care Team (Late st Contact Info) Description 08/09/2019 Transcribed Document [facility] [place] [facility] [place] [address] ProviderArnoldo MD [address] [place] [id number] Social History Tobacco Use Types Packs/Day Years Used Date Smoking Tobacco: Never Assessed Sex and Gender Information Value Date Recorded Sex Assigned at Male 05/14/2022 11:03 AM CDT Legal Sex Male 11:03 AM CDT Gender Identity Male 05/14/2022 11:03 AM CDT Sexual Orientation Not on file documented as of this encounter Miscellaneous Notes * Cerner Conversion Note - Arnoldo Guerrero MD - 08/09/2019 3:40 PM CDT [address] [address] [place] KLAUS IBARRA :1975 Visit Time:08/09/2019 Your Visit Summary Your Care Team Admitting Physician - VIRGIL LOPEZ MD-GURPREET HERNANDEZ, UNKNOWN Attending Physician - VIRGIL LOPEZ MD-EMR Primary Care Physician - MARY NO DR Referring Physician - MARY, SELF REFERRED Your Diagnosis Bilateral conjunctivitis Eye pain Rash Scabies Medical Information You may obtain a copy of your Emergency Department visit from Medical Records by calling the hospital phone number listed above and asking to be directed to the Medical Records Department. If you had special tests, such as EKG???s or X-rays, the interpretation of your tests given to you by the Emergency Department Physician is a preliminary report. Some fractures and illnesses fail to show up on preliminary tests. These will be reviewed again and we will call you if there are any new suggestions. If your symptoms continue notify your physician. After you leave, you should follow the instructions provided. What to do next Follow-Up Appointments Follow Up with Return to Emergency Department When Within As needed Comments Return if condition worsens. Conjunctivitis--- also known [...] a new piece of furniture in your home. Follow Up with NO TONY HERNANDEZ When Within 2 to 3 days Allergies No Known Medication Allergies Immunizations This Visit No Immunizations Found Medications What How Much When Instructions Next Dose New erythromycin ophthalmic (erythromycin 0.5% ophthalmic ointment) 0.5 Inch(es) Eyes Both Four Times A Day Duration: 10 Day(s) Printed Prescription The home medications listed are only as accurate as the information you provided. Please continue taking all of your medications prescribed by your Primary Care Provider unless specifically told to change or discontinue the medication. Please direct any questions regarding your home medications to your Primary Care Provider. Take your medications faithfully. Do NOT skip medication. Do NOT stop taking medications without the direction of a physician. Carry a list of your medications with you at all times, and take this medication list with you to your first follow up visit. Report any side effects. Avoid herbal remedies unless discussed with your physician. As part of your treatment plan, your physician may have prescribed a limited course of a controlled substance. This medication may be given to help people with moderate or severe pain or for other medical conditions, but there are risks involved with treatment. Common side effects may include nausea, constipation, drowsiness, sweating, itching, dry mouth, and rash. More serious side effects may include cognitive and motor impairment, like problems with thinking, concentrating, alertness, and movement (e.g. slowed reflexes), and driving and operating heavy machinery can be dangerous. It is important for you to talk to your physician if you have these side effects or questions. These controlled substances can produce physical dependence and be habit-forming if taken for an extended period of time, which means that the body has gotten used to them and may experience withdrawal symptoms if they are abruptly stopped. Withdrawal symptoms can include runny nose, sweating, goose bumps, diarrhea, abdominal cramping, rapid heartbeat, difficulty sleeping, and nervousness. Please dispose of unused and medications per pharmacy guidance. Test Results Laboratory or Other Results This Visit (last charted value for your 08/09/2019 visit) No Laboratory or Other Results This Visit Education Materials Scabies, Adult Scabies is a skin condition that happens when very small insects get under the skin (infestation). This causes a rash and severe itchiness. Scabies can spread from person to person (is contagious). If you get scabies, it is common for others in your household to get scabies too. With proper treatment, symptoms usually go away in 2???4 weeks. Scabies usually does not cause lasting problems. What are the causes? This condition is caused by mites (Sarcoptes scabiei, or human itch mites) that can only be seen with a microscope. The mites get into the top layer of skin and lay eggs. Scabies can spread from person to person through: ??? Close contact with a person who has scabies. ??? Contact with infested items, such as towels, bedding, or clothing. What increases the risk? This condition is more likely to develop in: ??? People who live in nursing homes and other extended-care facilities. ??? People who have sexual contact with a partner who has scabies. ??? Young children who attend child caregiver private home facilities. ??? People who care for others who are at increased risk for scabies. What are the signs or symptoms? Symptoms of this condition may include: ??? Severe itchiness. This is often worse at night. ??? A rash that includes tiny red bumps or blisters. The rash commonly occurs on the wrist, elbow, armpit, fingers, waist, groin, or buttocks. Bumps may form a line (krista) in some areas. ??? Skin irritation. This can include scaly patches or sores. How is this diagnosed? This condition is diagnosed with a physical exam. Your health care provider will look closely at your skin. In some cases, your health care provider may take a sample of your affected skin (skin scraping) and have it examined under a microscope. How is this treated? This condition may be treated with: ??? Medicated cream or lotion that kills the mites. This is spread on the entire body and left on for several hours. Usually, one treatment with medicated cream or lotion is enough to kill all of the mites. In severe cases, the treatment may be repeated. ??? Medicated cream that relieves itching. ??? Medicines that help to relieve itching. ??? Medicines that kill the mites. This treatment is rarely used. Follow these instructions at home: Medicines ??? Take or apply [id number] and prescription medicines as told by your health care provider. ??? Apply medicated cream or lotion as told by your health care provider. ??? Do not wash off the medicated cream or lotion until the necessary amount of time has passed. Skin Care ??? Avoid scratching your affected skin. ??? Keep your fingernails closely trimmed to reduce injury from scratching. ??? Take cool baths or apply cool washcloths to help reduce itching. General instructions ??? Clean all items that you recently had contact with, including bedding, clothing, and furniture. Do this on the same day that your treatment starts. ? Use hot water when you wash items. ? Place unwashable items into closed, airtight plastic bags for at least 3 days. The mites cannot live for more than 3 days away from human skin. ? Vacuum furniture and mattresses that you use. ??? Make sure that other people who may have been infested are examined by a health care provider. These include members of your household and anyone who may have had contact with infested items. ??? Keep all follow-up visits as told by your health care provider. This is important. Contact a health care provider if: ??? You have itching that does not go away after 4 weeks of treatment. ??? You continue to develop new bumps or burrows. ??? You have redness, swelling, or pain in your rash area after treatment. ??? You have fluid, blood, or pus coming from your rash. This information is not intended to replace advice given to you by your health care provider. Make sure you discuss any questions you have with your health care provider. Document Released: 07/24/2016 Document Revised: 04/10/2017 Document Reviewed: 06/04/2016 [employer] Interactive Patient Education ?? 2019 [employer] Bacterial Conjunctivitis Bacterial conjunctivitis is an infection of the clear membrane that covers the white part of your eye and the inner surface of your eyelid (conjunctiva). When the blood vessels in your conjunctiva become inflamed, your eye becomes red or pink, and it will probably feel itchy. Bacterial conjunctivitis spreads very easily from person to person (is contagious). It also spreads easily from one eye to the other eye. What are the causes? This condition is caused by several common bacteria. You may get the infection if you come into close contact with another person who is infected. You may also come into contact with items that are contaminated with the bacteria, such as a face towel, contact lens solution, or eye makeup. What increases the risk? This condition is more likely to develop in people who: ??? Are exposed to other people who have the infection. ??? Wear contact lenses. ??? Have a sinus infection. ??? Have had a recent eye injury or surgery. ??? Have a weak body defense system (immune system). ??? Have a medical condition that causes dry eyes. What are the signs or symptoms? Symptoms of this condition include: ??? Eye redness. ??? Tearing or watery eyes. ??? Itchy eyes. ??? Burning feeling in your eyes. ??? Thick, yellowish discharge from an eye. This may turn into a crust on the eyelid overnight and cause your eyelids to stick together. ??? Swollen eyelids. ??? Blurred vision. How is this diagnosed? Your health care provider can diagnose this condition based on your symptoms and medical history. Your health care provider may also take a sample of discharge from your eye to find the cause of your infection. This is rarely done. How is this treated? Treatment for this condition includes: ??? Antibiotic eye drops or ointment to clear the infection more quickly and prevent the spread of infection to others. ??? Oral antibiotic medicines to treat infections that do not respond to drops or ointments, or last longer than 10 days. ??? Cool, wet cloths (cool compresses) placed on the eyes. ??? Artificial tears applied 2???6 times a day. Follow these instructions at home: Medicines ??? Take or apply your antibiotic medicine as told by your health care provider. Do not stop taking or applying the antibiotic even if you start to feel better. ??? Take or apply [id number] and prescription medicines only as told by your health care provider. ??? Be very careful to avoid touching the edge of your eyelid with the eye drop bottle or the ointment tube when you apply medicines to the affected eye. This will keep you from spreading the infection to your other eye or to other people. Managing discomfort ??? Gently wipe away any drainage from your eye with a warm, wet washcloth or a cotton ball. ??? Apply a cool, clean washcloth to your eye for 10???20 minutes, 3???4 times a day. General instructions ??? Do not wear contact lenses until the inflammation is gone and your health care provider says it is safe to wear them again. Ask your health care provider how to sterilize or replace your contact lenses before you use them again. Wear glasses until you can resume wearing contacts. ??? Avoid wearing eye makeup until the inflammation is gone. Throw away any old eye cosmetics that may be contaminated. ??? Change or wash your pillowcase every day. ??? Do not share towels or washcloths. This may spread the infection. ??? Wash your hands often with soap and water. Use paper towels to dry your hands. ??? Avoid touching or rubbing your eyes. ??? Do not drive or use heavy machinery if your vision is blurred. Contact a health care provider if: ??? You have a fever. ??? Your symptoms do not get better after 10 days. Get help right away if: ??? You have a fever and your symptoms suddenly get worse. ??? You have severe pain when you move your eye. ??? You have facial pain, redness, or swelling. ??? You have sudden loss of vision. This information is not intended to replace advice given to you by your health care provider. Make sure you discuss any questions you have with your health care provider. Document Released: 11/03/2006 Document Revised: 03/13/2017 Document Reviewed: 08/15/2016 [employer] Interactive Patient Education ?? 2019 [employer]. Emergency Awareness and Preventative Care STROKE is an EMERGENCY Every Minute Counts Act FAST and Check for these signs: FACE Does the face look uneven? ARM Does one arm drift down? SPEECH Does their speech sound strange? TIME Call at any sign of stroke Stroke Risk Factors Atrial Fibrillation (irregular heartbeat) Diabetes Family history of stroke Heart Disease Heavy alcohol use High Blood Pressure High Cholesterol Physical inactivity and obesity Smoking Cigarette Smoking The facts are clear, cigarette smoking will shorten your life. Smoking can cause many illnesses along the way. As a healthcare provider, we recommend that you stop smoking. Assistance with quitting is available by contacting 5-905-DTRK-NOW. This is a free resource providing counseling, support, and referral. Or you may contact your personal physician. National Suicide Prevention Lifeline: The National Suicide Prevention Lifeline is a national network of local crisis centers that provides free and confidential emotional support to people in suicidal crisis or emotional distress 24 hours a day, 7 days a week. Don't Wait! Stop a Heart Attack Before it Starts What is a heart attack? A heart attack is damage or to a part of the heart from severely decreased or lack of blood flow to the heart. Over time, arteries can become narrow from the buildup of fat and cholesterol, which is called plaque. The plaque can rupture causing a blood clot to form. When the blood clot forms, the artery can become severely narrowed or completely blocked, causing a heart attack. Heart attack is the leading cause of in the [place]. 85% of muscle damage occurs within the first 2 hours. Delay in the recognition of heart attack symptoms increases the chances of . Know the early symptoms of a heart attack: Nausea Feeling of fullness in chest Jaw Pain Pain that travels down one or both arms Fatigue/being tired Anxiety Back Pain Chest pressure, squeezing, or discomfort Shortness of breath Sweating, or a cold sweat Feeling of impending doom There are unusual signs of a heart attack, too! Women, the elderly, and diabetics may present with atypical symptoms: Fainting/dizziness Weakness Confusion Risk Factors for a Heart Attack Some heart disease risk factors, such as age and family history, cannot be changed. Others, like smoking and lack of exercise, can be changed. Smoking High Cholesterol High Blood Pressure Family History Obesity Age Gender (Males are at higher risk) Lack of Exercise Diabetes Diet Stress Excessive Alcohol Intake If you or someone you know is experiencing the signs and symptoms of a heart attack, DON???T DELAY. Call immediately and seek help. If someone collapses, perform CPR! Do not attempt to drive if you are having symptoms of heart attack. Hands-Only CPR Why Hands-Only CPR? Hands-Only CPR has been shown to be as effective as conventional CPR for cardiac arrests that occur outside of a hospital. Survival depends on immediately receiving CPR from someone nearby. How do you perform Hands-Only CPR? There are two easy steps: Call if you see a teen or adult collapse Push hard and fast in the center of the chest at a beat of 100 beats per minute. Save a life! 4 WAYS TO GET AHEAD OF SEPSIS SEPSIS is a MEDICAL EMERGENCY. Time matters! Infections put you and your family at risk for a life-threatening condition called sepsis. Sepsis is the body's extreme response to an infection. It is life-threatening, and without timely treatment, sepsis can rapidly lead to tissue damage, organ failure, and . Sepsis happens when an infection you already have-in your skin, lungs, urinary tract or somewhere else-triggers a chain reaction throughout your body. 1 PREVENT INFECTIONS Take good care of chronic conditions. Talk to your doctor about getting the recommended vaccines. 2 PRACTICE GOOD HYGIENE Wash your hands frequently. Keep cuts or open sores clean and covered until they are healed. 3 KNOW THE SYMPTOMS Confusion or disorientation Shortness of breath High heart rate Fever, shivering, or feeling very cold Extreme pain or discomfort Clammy or sweaty skin 4 ACT FAST Get medical care IMMEDIATELY if you suspect sepsis or if you have an infection that is not getting better or is getting worse. To learn more about sepsis and how to prevent infections, visit www.cdc.gov/sepsis. The examination and treatment you have received in the Emergency Department has been done to provide an appropriate evaluation and stabilizing treatment on an emergency basis only. Given the limited resources, it is not meant to be a substitute for complete medical care. The follow-up doctor you named will receive a copy of your records and all test reports. IT IS IMPORTANT THAT YOU SCHEDULE A FOLLOW-UP APPOINTMENT AND ARE RE-EVALUATED. You should report any new complaints, symptoms, or remaining problems at that time. IT IS IMPOSSIBLE FOR THE EMERGENCY DEPARTMENT TO RECOGNIZE AND TREAT ALL ELEMENTS OF INJURY OR ILLNESS IN A SINGLE VISIT. If you have been referred to a specialist physician, it means that we believe you may have a condition that requires the expertise of a specialist. These physicians work in partnership with the hospital and have agreed to see referred patients in their office for further evaluation. KEEP IN MIND THAT THE SPECIALIST HAS HIS/HER OWN OFFICE POLICIES WHICH MAY REQUIRE PROPER INSURANCE OR PAYMENT UP FRONT BEFORE THE SPECIALIST WILL SEE YOU. It is your responsibility to call the specialist physician to make an appointment. We do not have the ability to refer patients to specialists/physicians that work with specific insurance companies. Please be advised that all financial charges or billing practices are determined by that practice, not the hospital. If your insurance company requires that you see a specialist from their approved list, it is your responsibility to contact your insurance company to make those arrangements. It is also your responsibility to follow any other requirements of your insurance company necessary to obtain coverage for claims submitted. We will bill your insurance; however, you are responsible today for any co-pay amounts. You will receive a separate bill for any services you may have received including: emergency, radiology, or pathology physicians. Patient Name:KLAUS HENRY I have received this information and was given the opportunity to ask questions. Patient/Merry Go Round Operator Name: Patient/Merry Go Round Operator Signature: Relationship to Patient: Clinician/Hospital Merry Go Round Operator Signature: Please Provide a Telephone Number Where You Can Be Reached: Is it Permissible To Leave a Message? Date: documented in this encounter Plan of Treatment Not on file documented as of this encounter Visit Diagnoses Not on filedocumented in this encounter
--- OUTSIDE RECORDS SUMMARY | 2025-11-11 14:12 | XMS_ITS | Encounter Summary ---
Author Organization [employer] ([place], [place], [place], [place], [place]) Address [address] [place] [address] Care Team Providers Care Claims Coordinator Name Role Phone Unavailable Primary Care Provider Unavailabl e Encounter Details Date Type Department Care Team (Late st Contact Info) Description 06/01/2019 Transcribed Document [facility] [place] [facility] [place] [address] ProviderArnoldo MD [address] [place] [address] Social History Tobacco Use Types Packs/Day Years Used Date Smoking Tobacco: Never Assessed Sex and Gender Information Value Date Recorded Sex Assigned at Male 05/14/2022 11:03 AM CDT Legal Sex Male 11:03 AM CDT Gender Identity Male 05/14/2022 11:03 AM CDT Sexual Orientation Not on file documented as of this encounter Miscellaneous Notes * Cerner Conversion Note - Historical ProviderMD - 06/01/2019 8:30 PM CDT Electronically signed by [facility] Conversion Cost Specialist Sharyn at 03/03/2023 11:27 AM CDT documented in this encounter Plan of Treatment Not on file documented as of this encounter Visit Diagnoses Not on filedocumented in this encounter
--- OUTSIDE RECORDS SUMMARY | 2025-11-11 14:12 | XMS_ITS | Referral Summary ---
Author Organization [employer] ([place], [place], [place], [place], [place]) Address [address] [place] [address] Care Team Providers Care Brickmason Supervisor Name Role Phone Unavailable Primary Care Provider Unavailabl e Social History Tobacco Use Types Packs/Day Years Used Date Smoking Tobacco: Never Assessed Sex and Gender Information Value Date Recorded Sex Assigned at Male 05/14/2022 11:03 AM CDT Legal Sex Male 11:03 AM CDT Gender Identity Male 05/14/2022 11:03 AM CDT Sexual Orientation Not on file Plan of Treatment Not on file
--- OUTSIDE RECORDS SUMMARY | 2025-11-11 14:12 | XMS_ITS | Encounter Summary ---
Author Organization [employer] ([place], [place], [place], [place], [place]) Address [address] [place] [address] Care Team Providers Care Deburring And Tooling Machine Operator Name Role Phone Unavailable Primary Care Provider Unavailabl e Encounter Details Date Type Department Care Team (Late st Contact Info) Description 06/01/2019 Transcribed Document [facility] [place] Family Medicine [facility] [place] [address] ProviderArnoldo MD [address] [place] [address] Social History Tobacco Use Types Packs/Day Years Used Date Smoking Tobacco: Never Assessed Sex and Gender Information Value Date Recorded Sex Assigned at Male 05/14/2022 11:03 AM CDT Legal Sex Male 11:03 AM CDT Gender Identity Male 05/14/2022 11:03 AM CDT Sexual Orientation Not on file documented as of this encounter Miscellaneous Notes * Cerner Conversion Note - Arnoldo Guerrero MD - 06/01/2019 8:41 PM CDT [address] [address] KLAUS HENRY STACEY :1975 Visit Time:06/01/2019 Your Visit Summary Your Care Team Admitting Physician - MARY, BONNIE Attending Physician - MOISÉS HERNANDEZ MD-EMR Primary Care Physician - DEB HERNANDEZ DR Your Diagnosis Conjunctivitis Eye pain Rash Medical Information You may obtain a copy [...] do next Follow-Up Appointments Follow Up with Follow up with specialty services When Within 2 to 3 days Allergies No Known Medication Allergies Immunizations This Visit No Immunizations Found Medications What How Much When Instructions Next Dose New hydrOXYzine (Vistaril 25 mg oral capsule) 1 Capsule(s) Oral Four Times A Day as needed for for itching Duration: 10 Day(s) Printed Prescription New hydrOXYzine (Vistaril 25 mg oral capsule) 1 Capsule(s) Oral Four Times A Day as needed for for itching Duration: 10 Day(s) Printed Prescription New meloxicam (Mobic 7.5 mg oral tablet) 1 Tablet(s) Oral Two Times A Day Duration: 7 Day(s) Printed Prescription New meloxicam (Mobic 7.5 mg oral tablet) 1 Tablet(s) Oral Two Times A Day Printed Prescription New permethrin topical (permethrin 5% topical cream) 1 Application(s) Topical Before Dinner Printed Prescription The home medications listed are [...] This Visit (last charted value for your 06/01/2019 visit) No Laboratory or Other Results This [...] has scabies. ??? Young children who attend early childhood assistant facilities. ??? People who care for others [...] at home: Medicines ??? Take or apply llkh-aoy-pmeffff and prescription medicines as told by your [...] 07/24/2016 Document Revised: 04/10/2017 Document Reviewed: 06/04/2016 [employer] Interactive Patient Education ?? 2019 [employer] Corneal Abrasion A corneal abrasion is a scratch or injury to the clear covering over the front of your eye (cornea). Your cornea forms a clear dome that protects your eye and helps to focus your vision. Your cornea is made up of many layers. The surface layer is a single layer of cells (corneal epithelium). It is one of the most sensitive tissues in your body. A corneal abrasion can be very painful. If a corneal abrasion is not treated, it can become infected and cause an ulcer. This can lead to scarring. A scarred cornea can affect your vision. Sometimes abrasions come back in the same area, even after the original injury has healed (recurrent erosion syndrome). What are the causes? This condition may be caused by: ??? A optical systems engineer the eye. ??? A gritty or irritating substance (foreign body) in the eye. ??? Excessive eye rubbing. ??? Very dry eyes. ??? Certain eye infections. ??? Contact lenses that fit poorly or are worn for a long period of time. You can also injure your cornea when putting contacts lenses in your eye or taking them out. ??? Eye surgery. Sometimes, the cause is unknown. What are the signs or symptoms? Symptoms of this condition include: ??? Eye pain. The pain may get worse when your eye is open or when you move your eye. ??? A feeling of something stuck in your eye. ??? Having trouble keeping your eye open, or not being able to keep it open. ??? Tearing and redness. ??? Sensitivity to light. ??? Blurred vision. ??? Headache. How is this diagnosed? This condition may be diagnosed based on: ??? Your medical history. ??? Your symptoms. ??? An eye exam. You may work with a health care provider who specializes in diseases and conditions of the eye (sample distributor). Before the eye exam, numbing drops may be put into your eye. You may also have dye put in your eye with a dropper or a small paper strip. The dye makes the abrasion easy to see when your sample distributor examines your eye with a light. Your sample distributor may look at your eye through an eye scope (slit lamp). How is this treated? Treatment may vary depending on the cause of your condition, and it may include: ??? Washing out your eye. ??? Removing any foreign body. ??? Antibiotic drops or ointment to treat an infection. ??? Steroid drops or ointment to treat redness, irritation, or inflammation. ??? Pain medicine. ??? An eye patch to keep your eye closed. Follow these instructions at home: Medicines ??? Use eye drops or ointments as told by your eye care provider. ??? If you were prescribed antibiotic drops or ointment, use them as told by your eye care provider. Do not stop using the antibiotic even if you start to feel better. ??? Take tohi-kdj-ysbuyci and prescription medicines only as told by your eye care provider. ??? Do not drive or use heavy machinery while taking prescription pain medicine. General instructions ??? If you have an eye patch, wear it as told by your eye care provider. ? Do not drive or use machinery while wearing an eye patch. Your ability to weight control engineer distances will be impaired. ? Follow instructions from your eye care provider about when to remove the patch. ??? Ask your eye care provider whether you can use a cold, wet cloth (compress) on your eye to relieve pain. ??? Do not rub or touch your eye. Do not wash out your eye. ??? Do not wear contact lenses until your eye care provider says that this is okay. ??? Avoid bright light and eye strain. ??? Keep all follow-up visits as told by your eye care provider. This is important for preventing infection and vision loss. Contact a health care provider if: ??? You continue to have eye pain and other symptoms for more than 2 days. ??? You develop new symptoms, such as redness, tearing, or discharge. ??? You have discharge that makes your eyelids stick together in the morning. ??? Your eye patch becomes so loose that you can blink your eye. ??? Symptoms return after the original abrasion has healed. Get help right away if: ??? You have severe eye pain that does not get better with medicine. ??? You have vision loss. Summary ??? A corneal abrasion is a scratch on the outer layer of the clear covering over the front of your eye (cornea). ??? Corneal abrasion can cause eye pain, redness, tearing, and blurred vision. ??? This condition is usually treated with medicine to prevent infection and scarring. You also may have to wear an eye patch to cover your eye. ??? Let your eye care provider know if your symptoms continue for more than 2 days. This information is not intended to replace advice given to you by your health care provider. Make sure you discuss any questions you have with your health care provider. Document Released: 10/31/2001 Document Revised: 10/14/2017 Document Reviewed: 10/14/2017 [employer] Interactive Patient Education ?? 2019 [employer]. Emergency Awareness and Preventative Care STROKE is [...] Assistance with quitting is available by contacting 4-580-DFQR-NOW. This is a free resource providing counseling, [...] was given the opportunity to ask questions. Patient/Registered Radiographer Name: Patient/Registered Radiographer Signature: Relationship to Patient: Clinician/Hospital Registered Radiographer Signature: Please Provide a Telephone Number Where You Can Be Reached: Is it Permissible To Leave a Message? Date: documented in this encounter Plan of Treatment Not on file documented as of this encounter Visit Diagnoses Not on filedocumented in this encounter
--- OUTSIDE RECORDS SUMMARY | 2025-11-11 14:12 | XMS_ITS | Encounter Summary ---
Author Organization [employer] ([place], [place], [place], [place], [place]) Address [address] [place] [address] Care Team Providers Care Melon Packer Name Role Phone Unavailable Primary Care Provider Unavailabl e Encounter Details Date Type Department Care Team (Late st Contact Info) Description 06/01/2019 Transcribed Document [facility] [place] Family Medicine [facility] [place] [address] ProviderArnoldo MD [address] [place] [address] Social History Tobacco Use Types Packs/Day Years Used Date Smoking Tobacco: Never Assessed Sex and Gender Information Value Date Recorded Sex Assigned at Male 05/14/2022 11:03 AM CDT Legal Sex Male 11:03 AM CDT Gender Identity Male 05/14/2022 11:03 AM CDT Sexual Orientation Not on file documented as of this encounter Miscellaneous Notes * Cerner Conversion Note - Arnoldo ProviderMD - 06/01/2019 8:33 PM CDT [address] [place] [address] PERSON INFORMATION Name KLAUS HENRY Age 44 Years 1975 Sex Male Language Bolivian PCP DEB HERNANDEZ DR Marital Status Med Service Emergency Medicine Acct# Arrival 06/01/2019 19:13:00 Visit Reason Rash; Eye pain; RASH EVERYWHERE POS INFECTION IN LT EYE Acuity 3 - Urgent LOS 000 01:20 Depart Date: 00:00 AM Address: [address] [place] [id number] Comment: PROVIDER INFORMATION Provider Role Assigned Unassigned SLAVA WOOD DO ED Physician 06/01/2019 20:01:39 DIAGNOSIS Conjunctivitis PHYS DOC NOTES VITALS INFORMATION Vital Sign Triage Latest Temp Source Tympanic Tympanic Temp Mode Fahrenheit Fahrenheit Temp Fahrenheit 97.4 Deg F 97.4 Deg F Temp Celsius 02 Sat 99 % 99 % Respiratory Rate 18 Breaths/Min 18 Breaths/Min Peripheral Pulse Rate 99 bpm 99 bpm Apical Heart Rate Blood Pressure 157 mmHg / 98 mmHg 157 mmHg / 98 mmHg Comment: MEDICAL INFORMATION Allergy Info: No Known Medication Allergies Medications: Prescription Display hydrOXYzine (Vistaril 25 mg oral capsule) 1 Cap, Oral, QID, PRN for itching, X 10 Day(s), # 40 Cap, 0 Refill(s) hydrOXYzine (Vistaril 25 mg oral capsule) 1 Cap, Oral, QID, PRN for itching, X 10 Day(s), # 40 Cap, 0 Refill(s) meloxicam (Mobic 7.5 mg oral tablet) 1 Tab, Oral, BID, # 14 Tab, 0 Refill(s) meloxicam (Mobic 7.5 mg oral tablet) 1 Tab, Oral, BID, # 20 Tab, 0 Refill(s) permethrin topical (permethrin 5% topical cream) 1 Application, Topical, Cream, AC Dinner, # 120 Gram, 0 Refill(s) Comment: DISCHARGE INFORMATION Discharge Disposition: Discharge Location: PATIENT EDUCATION INFORMATION Instructions: Scabies, Adult; Corneal Abrasion Follow up: With: Address: When: Follow up with specialty services Within 2 to 3 days Comment: documented in this encounter Plan of Treatment Not on file documented as of this encounter Visit Diagnoses Not on filedocumented in this encounter
--- OUTSIDE RECORDS SUMMARY | 2025-11-11 14:12 | XMS_ITS | Encounter Summary ---
Author Organization [employer] ([place], [place], [place], [place], [place]) Address [address] [place] [address] Care Team Providers Care Semiconductor Packages Tester Name Role Phone Unavailable Primary Care Provider Unavailabl e Encounter Details Date Type Department Care Team (Late st Contact Info) Description 08/09/[address] [facility] [place] Family Medicine [facility] [place] [address] ProviderArnoldo MD [address] [place] [address] Social History Tobacco Use Types Packs/Day Years Used Date Smoking Tobacco: Never Assessed Sex and Gender Information Value Date Recorded Sex Assigned at Male 05/14/2022 11:03 AM CDT Legal Sex Male 11:03 AM CDT Gender Identity Male 05/14/2022 11:03 AM CDT Sexual Orientation Not on file documented as of this encounter Miscellaneous Notes * Cerner Conversion Note - Historical ProviderMD - 08/09/2019 3:39 PM CDT Electronically signed by Meryl [facility] Conversion Gun Profiler Sharyn at 03/03/2023 11:43 AM CDT documented in this encounter Plan of Treatment Not on file documented as of this encounter Visit Diagnoses Not on filedocumented in this encounter
--- OUTSIDE RECORDS SUMMARY | 2025-11-11 14:12 | XMS_ITS | Clinical Summary ---
Author Organization [facility] Address [address] [facility] [address] [place] [address] Phone Care Team Providers Care Mold Checker Name Role Phone Unavailable Unavailable Conditions or Problems No information available. Medications No information available. Medications Administered No information available. Allergies, Adverse Reactions, Alerts No information available. Results No information available. Plan of Care No information available. Procedures No information available. Vital Signs No information available. Immunizations No information available. Advance Directives No information available.
--- OUTSIDE RECORDS SUMMARY | 2025-11-11 14:12 | XMS_ITS | Encounter Summary ---
Author Organization [employer] ([place], [place], [place], [place], [place]) Address [address] [place] [address] Care Team Providers Care Director It Project Name Role Phone Unavailable Primary Care Provider Unavailabl e Encounter Details Date Type Department Care Team (Late st Contact Info) Description 06/01/2019 Transcribed Document [facility] [place] Family Medicine [facility] [place] [address] ProviderArnoldo MD [address] [place] [address] Social History Tobacco Use Types Packs/Day Years Used Date Smoking Tobacco: Never Assessed Sex and Gender Information Value Date Recorded Sex Assigned at Male 05/14/2022 11:03 AM CDT Legal Sex Male 11:03 AM CDT Gender Identity Male 05/14/2022 11:03 AM CDT Sexual Orientation Not on file documented as of this encounter Miscellaneous Notes * Cerner Conversion Note - Arnoldo ProviderMD - 06/01/2019 8:51 PM CDT ED Discharge Entered On: 06/01/2019 20:51 EDT Performed On: 06/01/2019 20:51 EDT by Zulma Diego Hand Shaper Process Patient Disposition : Discharge Personal Belongings With Patient : Yes Patient Education Completed : Yes Teaching Evaluation : Verbalizes understanding IV Discontinued : Not applicable Nursing Documentation Completed : Yes Zulma Diego Rn - 06/01/2019 20:51 EDT ED Discharge Discharge To : Home with ambulatory/outpatient follow-up Mode Of Departure : Ambulatory Accompanied By : Other: aunt Discharge Instructions Reviewed With, Opportunity For Questions Given : Patient Prescriptions Given to Patient : Yes Number of Prescriptions Given : 3 Zulma Diego Rn - 06/01/2019 20:51 EDT Electronically signed by Meryl [facility] Conversion Oilfield Plant And Field Operator Cerner at 03/03/2023 11:39 AM CDT documented in this encounter Plan of Treatment Not on file documented as of this encounter Visit Diagnoses Not on filedocumented in this encounter
--- OUTSIDE RECORDS SUMMARY | 2025-11-11 14:12 | XMS_ITS | Encounter Summary ---
Author Organization [employer] ([place], [place], [place], [place], [place]) Address [address] [place] [address] Care Team Providers Care Carpenters Helper Name Role Phone Unavailable Primary Care Provider Unavailabl e Encounter Details Date Type Department Care Team (Late st Contact Info) Description 08/09/2019 Transcribed Document [facility] [place] Family Medicine [facility] [place] [address] ProviderArnoldo MD [facility] [place] [address] Social History Tobacco Use Types Packs/Day Years [...] ProviderMD - 08/09/2019 1:18 PM CDT ED Assessment Entered On: 08/09/2019 15:19 EDT Performed On: 08/09/2019 15:16 EDT by YANCY BRAMBILA RN ED Quick Look Assessment Level of Consciousness : Alert, Awake Affect/Behavior : Appropriate, Calm, Cooperative Orientation : Oriented x 4 YANCY BRAMBILA RN - 08/09/2019 15:16 EDT ED General-Functional Assess Communication Barrier : None Primary Language : Lithuanian Any Spiritual/Cultural Needs or Requests : No Currently in Unsafe Situation : No YANCY BRAMBILA RN - 08/09/2019 15:16 EDT Social Habits Smoking Status : 10 or more cigarettes (1/2 pack or more)/day in last 30 days Smokeless Tobacco Status : Refused tobacco status screen Desires Tobacco Cessation Medication : No Reason for No Tobacco Cessation Medication : ED/procedural patient only Desires Tobacco Cessation Calc : 1 YANCY BRAMBILA RN - 08/09/2019 15:16 EDT Social History (As Of: 08/09/2019 15:19:09 EDT) Tobacco: Smoking Status Current every day smoker. (Last Updated: 08/06/2015 15:27:23 EDT by Clotilde Nava, RN) Alcohol: Use in Last 12 Months: No. (Last Updated: 08/06/2015 15:27:29 EDT by Clotilde Nava, RN) EENT Assessment Eye Assessment, Right : Itching, Redness Eye Assessment, Left : Itching, Redness YANCY BRAMBILA RN - 08/09/2019 15:16 EDT Electronically signed by Ada Sheth Conversion Instructional Design Technologist Cerner at 03/03/2023 11:25 AM CDT documented in this encounter Plan of Treatment Not on file documented as of this encounter Visit Diagnoses Not on filedocumented in this encounter
--- OUTSIDE RECORDS SUMMARY | 2025-11-11 14:12 | XMS_ITS | Clinical Summary ---
Author Organization [employer] ([place], [place], [place], [place], [place]) Address [address] [place] [address] Care Team Providers Care Portable Track Line Marker Name Role Phone Unavailable Primary Care Provider [...]
--- OUTSIDE RECORDS SUMMARY | 2025-11-11 14:12 | XMS_ITS | Encounter Summary ---
Author Organization [employer] ([place], [place], [place], [place], [place]) Address [address] [place] [address] Care Team Providers Care Ventilation Worker Name Role Phone Unavailable Primary Care Provider Unavailabl e Encounter Details Date Type Department Care Team (Late st Contact Info) Description 08/09/2019 Transcribed Document [facility] [place] [facility] [place] [address] ProviderArnoldo MD [address] [place] [id number] Social History Tobacco Use Types Packs/Day Years Used Date Smoking Tobacco: Never Assessed Sex and Gender Information Value Date Recorded Sex Assigned at Male 05/14/2022 11:03 AM CDT Legal Sex Male 11:03 AM CDT Gender Identity Male 05/14/2022 11:03 AM CDT Sexual Orientation Not on file documented as of this encounter Miscellaneous Notes * Cerner Conversion Note - Arnoldo ProviderMD - 08/09/2019 3:49 PM CDT ED Discharge Entered On: 08/09/2019 15:51 EDT Performed On: 08/09/2019 15:49 EDT by YANCY BRAMBILA RN Discharge Process Patient Disposition : Discharge Personal Belongings With Patient : Yes Patient Education Completed : Yes Teaching Evaluation : Verbalizes understanding Education Comment : pt dced home in stable condition IV Discontinued : Not applicable Nursing Documentation Completed : Yes YANCY BRAMBILA RN - 08/09/2019 15:49 EDT ED Discharge Discharge To : Home with ambulatory/outpatient follow-up Mode Of Departure : Ambulatory Accompanied By : Friend Discharge Instructions Reviewed With, Opportunity For Questions Given : Patient Prescriptions Given to Patient : Yes Number of Prescriptions Given : 2 YANCY BRAMBILA RN - 08/09/2019 15:49 EDT Electronically signed by Meryl [facility] Conversion Assisted Living Coordinator Cerner at 03/03/2023 11:34 AM CDT documented in this encounter Plan of Treatment Not on file documented as of this encounter Visit Diagnoses Not on filedocumented in this encounter
[2025-11-11 14:14] VITALS: O2SAT 98
[2025-11-11 14:16] LABS: Coronavirus 19, PCR Not Detected (NotDetected); Influenza A, PCR Not Detected (NotDetected); Influenza B, PCR Not Detected (NotDetected)
[2025-11-11 14:33] LABS: Strep Scrn Group A (Rapid) Negative (Negative)
--- NOTE | 2025-11-11 14:41 | ED_ITS ---
<Statement entered by Gianni Holland MD - 11/12/25 15:00> Gianni Holland MD: I was consulted by the DONNA, and we discussed the complexity of the problems being addressed. I approve the treatment and management plan for this patient's care in the emergency department, thus performing a substantive portion of the medical decision making. Discharge Plan Disposition Patient Disposition: Eloped Chief Complaint: Upper Respiratory Infection Prescriptions Prescriptions: No Action amoxicillin-pot clavulanate 875-125 mg Tablet 1 tab PO Q12H Qty: 20 0RF sulfamethoxazole-trimethoprim [Bactrim DS] 800-160 mg tablet 1 tab PO DAILY 7 Days Qty: 7 0RF ondansetron 4 mg tablet,disintegrating 4 mg PO Q8H PRN (Reason: nausea and vomiting) 4 Days Qty: 12 0RF doxycycline hyclate 100 mg capsule 100 mg PO BID 7 Days Qty: 14 0RF gpwpcgdeglutsus-gjlpsnjql-RA [Bromfed DM] 2-30-10 mg/5 mL syrup 5 ml PO Q6H PRN (Reason: cold symptoms) Qty: 118 0RF Referrals Follow up/Referrals: Gala Abel APRN [Primary Care Provider, Medical] - See instructions Clinical Impressions Clinical Impression: Pharyngitis Print Language Print Language: Armenian Discharge ED Provider: Gianni Holland General Adult HPI General Chief complaint: Upper Respiratory Infection Stated complaint: V/D, sore throat Time Seen by Provider: 11/11/25 13:41 Mode of Arrival: Ambulatory Source of Information: Patient Description of Symptoms (Recalled from ER Triage Doc. by RN): Patient reports sore throat, nausea, and vomiting since last night. History of Present Illness HPI narrative: Klaus Heredia is a 50-year-old male who presents emergency room today with complaints of sore throat, body aches, chills, and nausea. Mr. Heredia states his symptoms started yesterday. Believes he just has either strep or the flu. Has had 1 episode of NBNB emesis last night. 1 episode of nonbloody diarrhea last night. Still complaining of some mild nausea. No fever noted. Denies any productive cough, chest pain, shortness of breath, abdominal pain. No focal neurodeficits. No cardiac history noted, does take antihypertensives and Suboxone. No stents in his heart, no blood thinners. No lung disease. No known sick contacts. No complaints at this time. Related Data Previous Rx's ?Medication ?Instructions ?Recorded amoxicillin 875 mg-potassium 1 tab PO Q12H #20 tabs clavulanate 125 mg tablet ondansetron 4 mg disintegrating 4 mg PO Q8H PRN nausea and 10/15/23 tablet vomiting 4 days #12 tabs sulfamethoxazole 800 1 tab PO DAILY 7 days #7 tab s 10/15/23 mg-trimethoprim 160 mg tablet (Bactrim DS) lshqmiqgncehhxr-nreldocaczdyebi-ZS 5 ml PO Q6H PRN col d symptoms #118 01/25/25 2 mg-30 mg-10 mg/5 mL oral syrup mL (Bromfed DM) doxycycline hyclate 100 mg capsule 100 mg PO BID pneum onia 7 days #14 01/25/25 caps Allergies Allergy/AdvReac Type Severity Reaction Status Date / Time No Known Allergies Allergy Verified 01/25/25 18:31 [facility] Disclaimer: The information contained in this section may have been updated after the patient was seen, as this information can be updated by other users. Medical History (Updated 11/11/25 @ 15:28 by Gloria Vincent APRN) Anxiety Hypertension Social History (Updated 07/09/23 @ 13:41 by Alehta Childers APRN) Smoking Status: Current every day smoker alcohol intake: never current occupational status: employed Travel in the last 8 weeks?: None Have you lived/traveled outside [place] in past 30 days?: No Contact w/someone who lives/traveled outside [place] past 30 days?: No Exposure to someone with infectious disease in past 14 days?: No Do you have a fever (greater than 100.4 F or 38 C)?: No Have you tested positive for COVID-19?: No Exposed to someone with COVID-19 in past 14 days?: No Do you have a sore throat?: No Do you have a cough?: No Do you have any weakness?: No Do you have any diarrhea?: No Are you experiencing any unusual bleeding?: No Do you have any muscle aches/pain?: No Do you have any abdominal pain?: No Are you experiencing loss of taste or smell?: No ROS Obtained: Yes All systems reviewed & no additional complaints except as documented Physical Exam General General appearance: alert and in no apparent distress Head Head exam: atraumatic, normocephalic and normal inspection Eye Eye exam: Present normal appearance, PERRL and EOMI ENT ENT exam: Present normal exam, normal oropharynx, mucous membranes moist, TM's normal bilaterally and normal external ear exam Neck Neck exam: Present normal inspection, full ROM and trachea midline; Absent me ningismus or lymphadenopathy Chest Chest inspection: Present normal inspection and symmetric chest wall rise; Absent tenderness Respiratory Respiratory exam: Present normal lung sounds bilaterally; Absent respiratory distress Cardiovascular Cardiovascular exam: Present regular rate and normal rhythm; Absent JVD Abdominal Exam Abdominal exam: Present soft and normal bowel sounds; Absent distention, ten derness or guarding Extremities Exam Extremities exam: Present normal inspection, full ROM and normal capillary refill; Absent calf tenderness Back Exam Back exam: Present normal inspection; Absent tenderness Neurological Exam Neurological exam: Present alert and oriented X3 Psychiatric Psychiatric exam: Present normal affect and normal mood Skin Skin exam: Present warm, dry, intact and normal color Lymphatic Lymphatic Findings: no adenopathy Medical Decision Making Medical Records Screening: Per USPSTF and CDC recommendations, given the prevalence of disease in our region, it is our hospital?s policy to screen for HIV and viral Hepatitis for all patients aged 18 and over and those with ongoing risk factors. Jose Inquiry Pt receiving controlled substance: No Vital Signs: 11/11/25 14:05 11/11/25 14:08 11/11/25 14:14 Temperature 98.5 F Temperature Source Oral Pulse Rate 87 Pulse Rate [Radial] 87 Respiratory Rate 18 18 Blood Pressure 132/90 Blood Pressure [Right Arm] 132/90 Blood Pressure Mean [Right Arm] 104 Blood Pressure Source Automatic Cuff Blood Pressure Source [Right Arm] Automatic Cuff Blood Pressure Position Sitting Blood Pressure Position [Right Arm] Sitting 02 Sat by Pulse Oximetry 98 98 98 Oxygen Delivery Method Room Air Room Air Room Air Lab Data Lab Results 11/11/25 14:12: SARS-CoV-2 (PCR) Not detected, Influenza A Untype (PCR) Not detected, Influenza Type B (PCR) Not detected, Group A Strep Rapid Negative Orders (Tests/Meds): ED MEDICATIONS Discontinued Medications Generic Name Dose Route Start Last Admin Trade Name Freq PRN Reason Stop Dose Admin Ondansetron HCl 4 mg 11/11/25 14:57 11/11/25 15:01 Ondansetron 4mg Odt SL 11/11/25 14:58 4 mg ONCE ONE Administration ORDERS Category Date Time Status HIV Combo Stat Lab 11/11/25 14:08 Ordered Hepatitis C Ab Qual. W/ RFX Stat Lab 11/11/25 14:08 Ordered Rapid PCR Covid and Flu A/B Stat Lab 11/11/25 14:12 Completed Strep Scrn Group A (Rapid) Stat Lab 11/11/25 14:12 Completed Strep Screen Confirmation Stat Micro 11/11/25 14:12 Received Medical Decision Narrative: In summary patient is an 50-year-old male who presents emergency department for evaluation of sore throat, body aches, chills, generalized malaise and fatigue. Patient also reports 1 episode of NBNB emesis last night, 1 episode of diarrhea last night as well. Reports some ongoing nausea this morning. No abdominal pain. Patient is hemodynamically stable, sinus rhythm on the monitor, normotensive upon arrival, afebrile. Unremarkable nonfocal physical exam. Differential diagnosis includes influenza, COVID, gastroenteritis. Initial workup will be conducted with respiratory swabs and strep swab. If these are negative we may proceed with additional testing at that time . Initial interventions include Zofran sublingual and p.o. challenge initial workup reviewed by me showed patient was negative for strep, COVID, and influenza. Patient not having any additional vomiting while here. No abdominal pain noted. Not tachycardic, normotensive, afebrile. Patient believes that he likely just has an upper respiratory illness and would not like to pursue additional testing at this time. We will try some Zofran sublingual and a p.o. challenge to see if this helps with his nausea. Upon repeat evaluation patient had eloped from the emergency room. Critical Care Critical Care Time Critical Care Time: No
[2025-11-11] MEDS: ONDANSETRON 4MG ODT 4 MG SL (15:01)
[2025-11-11 15:38] VITALS: BP 132/90; PULSE 87; RESP 18; TEMP 36.9; O2SAT 98
== END 2025-11-11 15:40 | disposition left against medical advice (07) ==
PROVIDERS: Nurse Practitioner Acute Care; Emergency Provider Student in an Organized Health Care Education/Training Program; PCP Nurse Practitioner Family
DX: J02.9 Acute pharyngitis, unspecified (principal); R11.2 Nausea with vomiting, unspecified; Z87.891 Personal history of nicotine dependence
CPT/HCPCS: 87430; 87636; 99283; 99284; Q0162